=== PATIENT | female | born 1980 | race Caucasian/White ===

== ENCOUNTER 2024-02-15 15:06 | Outpatient (CLI) | payer BC | END 2024-02-15 15:07 | disposition home or self-care (01) | LOC: ULT 15:06 | PROVIDERS: ATTEND Nurse Practitioner Family | DX: D17.23 Benign lipomatous neoplasm of skin and subcutaneous tissue of right leg (principal) | CPT/HCPCS: 76882 ==

== ENCOUNTER 2024-03-10 15:07 | Outpatient (CLI) | payer BC | END 2024-03-10 15:08 | disposition home or self-care (01) | LOC: BICMAMMO 15:07 | PROVIDERS: ATTEND Nurse Practitioner Family | DX: Z12.31 Encounter for screening mammogram for malignant neoplasm of breast (principal); Z80.3 Family history of malignant neoplasm of breast | CPT/HCPCS: 77063; 77067 ==